=== PATIENT | female | born 1995 | race Caucasian/White ===

== ENCOUNTER 2018-06-12 23:23 | Emergency (ER) | payer OTHER ==
[~2018-06-12] VITALS: Ht 175.3 cm; Wt 72.6 kg
[~2018-06-12 23:23] MED LIST: CONCERTA36 MG/BOTT; KETO10TA2 PO; LAMICTAL150 MG
[2018-06-13] MEDS ORDERED: KETO10TA2 PO (03:49)
== END 2018-06-13 03:54 | disposition home or self-care (01) ==
LOC: ER 23:23
DX: S40.011A Contusion of right shoulder, initial encounter (principal); V49.9XXA Car occupant (driver) (passenger) injured in unspecified traffic accident, initial encounter; Y93.89 Activity, other specified; Y92.488 Other paved roadways as the place of occurrence of the external cause; Y99.8 Other external cause status

== ENCOUNTER 2020-08-01 15:29 | Outpatient (CLI) | payer OTHER | END 2020-08-01 15:38 | disposition home or self-care (01) | LOC: TOM 15:29 | PROVIDERS: ATTEND Otolaryngology | DX: J34.2 Deviated nasal septum (principal); J34.3 Hypertrophy of nasal turbinates; J30.89 Other allergic rhinitis ==